=== PATIENT | female | born 1960 | race Caucasian/White ===

== ENCOUNTER 2017-04-26 16:24 | Emergency (ER) | payer SELFPAY ==
[~2017-04-26] VITALS: Ht 160 cm; Wt 101.8 kg
[2017-04-26] MEDS ORDERED: IV NORMAL SALINE 500ML 500 ML IV ONE (16:30)
--- NOTE | 2017-04-26 17:04 | PHYS DOC ---
Past History Past Medical History: Anxiety, COPD, High Cholesterol, Hypertension Past Surgical History: Alcohol Use: None Drug Use: None Adult General Chief Complaint Chief Complaint: HYPOTENSION HPI HPI 56-year-old female with a history of high blood pressure presenting to the emergency department with left-sided epigastric abdominal pain that has been present for more than 2 months. She describes the pain is mild to moderate intermittent and radiating down her left flank and without alleviating factors. No associated symptoms. No specific timing. She also feels mildly anxious. She comes in by EMS today. Report of low bp in route. she recieved 500cc prior to arrival. On arrival here, first bp was about 100 systolic. She is not in extremis. mentating normally. Review of systems is negative for chest pain shortness of breath fevers chills nausea vomiting. All other review of systems is negative unless otherwise noted in history of present illness. Pertinent physical exam findings. Lungs are clear to auscultation bilaterally. The patient's breathing comfortably on room air. Abdomen is soft and nontender. Negative McBurney's point. Negative Diaz sign no guarding or rebound tenderness present. Mild left CVA tenderness present. ED course: 86-year-old female presenting to the emergency department with left upper abdominal pain/flank pain. Heart rate within normal limits. Saturations were in the high 80s. Patient reports that this is always were her saturations are. She is on 4 L NC at home baseline. I initiated a ct abd pelvis, chest xray and blood work which had not resulted prior to sign out at 6pm. The pt was then signed out to Dr. Noriega with plans of reexamination and follow up on test Review of Systems Review of Systems SEE ABOVE. Current Medications Current Medications Current Medications Medications (Trade) Dose Ordered Sig/Eduardo Start Time Stop Time Status Last Admin Dose Admin Sodium Chloride 500 ml @ 0 mls/hr 1X ONCE 04/26/17 16:30 04/26/17 16:35 DC Allergies Allergies Allergies Coded Allergies Type Severity Reaction Last Updated Verified No Known Drug Allergies 01/07/17 No Physical Exam Physical Exam Constitutional: Well developed, well nourished, no acute distress, non-toxic appearance. HENT: Normocephalic, atraumatic, bilateral external ears normal, oropharynx moist, no oral exudates, nose normal. [] Eyes: PERRLA, EOMI, conjunctiva normal, no discharge. [] Neck: Normal range of motion, no tenderness, supple, no stridor. [] Cardiovascular:Heart rate regular rhythm, no murmur Lungs & Thorax: Bilateral breath sounds clear to auscultation [] Abdomen: Bowel sounds normal, soft, no tenderness, no masses, no pulsatile masses. [] Skin: Warm, dry, no erythema, no rash. [] Back: pos for CVA tenderness. [] Extremities: No tenderness, no cyanosis, no clubbing, ROM intact, no edema. [] Neurologic: Alert and oriented X 3, normal motor function, normal sensory function, no focal deficits noted. [] Psychologic: Affect normal, judgement normal, mood normal. [] EKG EKG [] EKG shows sinus rhythm with regular rate. ST segments congruent. Nonspecific T-wave inversions in the anterior leads.. No previous available for me for comparison at this time. Radiology/Procedures Radiology/[place] [address] IMAGING REPORT Signed PATIENT: ALEX GUILLEN ACCOUNT: [id number] : 1960 LOCATION: ER AGE: 56 SEX: F EXAM STATUS: REG ER ORD. PHYSICIAN: SEDA MONTANA MD REASON: abdominal pain and soft bp PROCEDURE: CT ABDOMEN PELVIS WO CONTRAST Examination: CT of the abdomen and pelvis without contrast HISTORY: History of abdominal pain, left-sided weakness COMPARISON: None available Technique: Axial CT images of the abdomen and pelvis was performed without contrast. Coronal and sagittal reformats performed. Exposure: One or more of the following individualized dose reduction techniques were utilized for this examination: 1. Automated exposure control 2. Adjustment of the mA and/or kV according to patient size 3. Use of iterative reconstruction technique Findings: The visualized bibasilar lungs grossly appears unremarkable. No evidence of free air identified in the abdomen. The evaluation of the solid organs is limited due to lack of IV contrast. Evaluation of bowel is limited due to lack of oral contrast. There is a diffusely decreased attenuation throughout the liver likely hepatic steatosis. The visualized spleen, adrenals sleep is unremarkable. The gallbladder is mildly distended. Visualized pancreas grossly appears unremarkable. The gallbladder is mildly distended. The stomach is mildly distended with fluid. The small bowel is nondilated. Feces and gas noted in the colon. Multiple diffuse colonic diverticula are identified throughout the colon. The bladder is mildly distended. The visualized uterus, adnexa prostate appears unremarkable. No evidence of intrarenal collecting system calculi or hydronephrosis identified. There is a cystic structure identified in the inferior aspect of the left kidney measuring 5.9 cm could be a cyst or cystic lesion. There is mild inflammatory fat stranding identified about the bilateral kidneys and extending inferiorly. Small 4 mm calcification anteroinferior to the right kidney likely soft tissue calcification as this does not appear to be along the ureter. Moderate degenerative changes identified in the lumbar spine. IMPRESSION: 1. Mild inflammatory fat stranding identified about the bilateral kidneys, nonspecific. Correlate for pyelonephritis. 2. Multiple colonic diverticula. 3. 5.9 cm cyst is identified in the left kidney likely a cyst or cystic lesion. 4. Hepatic steatosis. 5. Mildly distended gallbladder. Electronically signed by: Richard Feliciano MD (04/26/2017 5:31 PM) DICTATED AND SIGNED BY: RICHARD FELICIANO MD DATE: 04/26/17 1714 CC: JUAN MATA; SEDA MONTANA MD ~ Impressions: Hypotension Lactic acidosis Allergic reaction Hypokalemia Course & Med Decision Making Course & Med Decision Making Pertinent Labs and Imaging studies reviewed. (See chart for details) I assumed care from Dr. Montana, my interaction the patient she stated that she was feeling fine until she ate some peanuts and about 20 minutes later she started itching intensely throughout her arms she was given a Benadryl and Benadryl cream by her friend his spider these peanuts and then she started feeling generalized weak and couldn't make it out to the car so 911 was called. The ER. Here she was hypotensive and she states that she normally has a history of hypertension takes blood pressure medicines. She does complain about left sided flank discomfort that she's had for over 2 months and she's been treated for an aquatic's twice with Cipro Flagyl. She denies any shortness of breath fevers chills nausea or vomiting currently. She has received 500 mL of normal saline and her labs have been obtained and resulted. She does have a lactic acidosis of which have added on additional fluids since Solu-Medrol. I've replaced her potassium. We will admit to the hospitalist for further evaluation and treatment regarding her elevated lactic acid and hypotension. Currently the patient's in stable condition agreeable to the plan. Interim orders have been written. Dragon Disclaimer Dragon Disclaimer This chart was dictated in whole or in part using Voice Recognition software in a busy, high-work load, and often noisy Emergency Department environment. It may contain unintended and wholly unrecognized errors or omissions. Departure Departure: Impression: Primary Impression: Epigastric abdominal pain Additional Impression: Hypoxia Disposition: ADMITTED INPATIENT Condition: STABLE Referrals: JUAN MATA (PCP) Problem Qualifiers SEDA MONTANA MD Apr 26, 2017 17:04 KRISTY NORIEGA MD Apr 26, 2017 19:46
[2017-04-26 17:05] LABS: BASO # 0.1 x10^3/uL (0.0-0.2); BASO % 1 % (0-3); EOS # 0.1 x10^3/uL (0.0-0.7); EOS % 1 % (0-3); HEMATOCRIT 49.8 % (36.0-47.0); LYMPH # 2.7 x10^3/uL (1.0-4.8); LYMPH % 26 % (24-48); MEAN CORPUSCULAR HEMOGLOBIN 37 pg (25-35); MEAN CORPUSCULAR HGB CONC 34 g/dL (31-37); MEAN CORPUSCULAR VOLUME 108 fL (79-100); MONO # 0.4 x10^3/uL (0.0-1.1); MONO % 4 % (0-9); NEUT % 69 % (31-73); PLATELET COUNT 188 x10^3/uL (140-400); RED CELL DISTRIBUTION WIDTH 14.9 % (11.5-14.5); WHITE BLOOD COUNT 10.2 x10^3/uL (4.0-11.0)
[2017-04-26 17:24] LABS: CALCIUM 8.4 mg/dL (8.5-10.1); CREATININE 0.9 mg/dL (0.6-1.0); DIRECT BILIRUBIN 0.1 mg/dL (0.0-0.2); GFR 64.8; TOTAL BILIRUBIN 0.6 mg/dL (0.2-1.0); TOTAL PROTEIN 6.1 g/dL (6.4-8.2)
--- NOTE | 2017-04-26 17:33 | RAD ---
Examination: CT of the abdomen and pelvis without contrast HISTORY: History of abdominal pain, left-sided weakness COMPARISON: None available Technique: Axial CT images of the abdomen and pelvis was performed without contrast. Coronal and sagittal reformats performed. Exposure: One or more of the following individualized dose reduction techniques were utilized for this examination: 1. Automated exposure control 2. Adjustment of the mA and/or kV according to patient size 3. Use of iterative reconstruction technique Findings: The visualized bibasilar lungs grossly appears unremarkable. No evidence of free air identified in the abdomen. The evaluation of the solid organs is limited due to lack of IV contrast. Evaluation of bowel is limited due to lack of oral contrast. There is a diffusely decreased attenuation throughout the liver likely hepatic steatosis. The visualized spleen, adrenals sleep is unremarkable. The gallbladder is mildly distended. Visualized pancreas grossly appears unremarkable. The gallbladder is mildly distended. The stomach is mildly distended with fluid. The small bowel is nondilated. Feces and gas noted in the colon. Multiple diffuse colonic diverticula are identified throughout the colon. The bladder is mildly distended. The visualized uterus, adnexa prostate appears unremarkable. No evidence of intrarenal collecting system calculi or hydronephrosis identified. There is a cystic structure identified in the inferior aspect of the left kidney measuring 5.9 cm could be a cyst or cystic lesion. There is mild inflammatory fat stranding identified about the bilateral kidneys and extending inferiorly. Small 4 mm calcification anteroinferior to the right kidney likely soft tissue calcification as this does not appear to be along the ureter. Moderate degenerative changes identified in the lumbar spine. IMPRESSION: 1. Mild inflammatory fat stranding identified about the bilateral kidneys, nonspecific. Correlate for pyelonephritis. 2. Multiple colonic diverticula. 3. 5.9 cm cyst is identified in the left kidney likely a cyst or cystic lesion. 4. Hepatic steatosis. 5. Mildly distended gallbladder. Electronically signed by: Richard Feliciano MD (04/26/2017 5:31 PM)
--- NOTE | 2017-04-26 17:42 | EKG ---
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
[2017-04-26 18:49] LABS: BILIRUBIN,URINE NEG (NEG); CLARITY,URINE HAZY; COLOR,URINE AMBER; GLUCOSE,URINE NEG (NEG)
[2017-04-26 18:50] LABS: BACTERIA,URINE FEW /HPF (0-FEW); NITRITE,URINE NEG (NEG); SQUAMOUS EPITHELIAL CELL,UR MANY /LPF; UROBILINOGEN,URINE 0.2 mg/dL (0.2 mg/dL)
[2017-04-26 18:54] LABS: HYALINE CASTS, URINE FEW /HPF
[2017-04-26] MEDS ORDERED: POTASSIUM CHLORIDE 20 MEQ TABLET.ER. PO ONE ×2 (19:15→23:00)
[2017-04-26] MEDS ORDERED: IV NORMAL SALINE 1,000ML 1,000 ML IV ONE (19:15)
[2017-04-26] MEDS ORDERED: cefTRIAXone SODIUM 1 GM VIAL IV ONE (19:23)
[2017-04-26] MEDS ORDERED: IV NORMAL SALINE 50ML 50 ML ONE (19:23)
[2017-04-26] MEDS ORDERED: methylPREDNISolone SOD SUCC PF 125 MG/2 ML VIAL. IV ONE (19:45)
[2017-04-26] MEDS ORDERED: ONDANSETRON PF 4 MG/2 ML VIAL. IV PRN (20:45)
[2017-04-26] MEDS ORDERED: ACETAMINOPHEN 325 MG TABLET PO PRN (20:45)
[2017-04-26 21:51] VITALS: BP 149/70
[2017-04-26] MEDS ORDERED: LISI40TA PO (22:15)
[2017-04-26] MEDS ORDERED: CITA40TA12 PO (22:15)
[2017-04-26] MEDS ORDERED: IBUP200T43 PO (22:15)
[2017-04-26] MEDS: IV NORMAL SALINE 1,000ML 1,000 ML IV SCH (23:17)
[2017-04-26] MEDS: IBUPROFEN 600 MG TABLET. PO PRN (23:17)
[2017-04-27 06:20] VITALS: BP 134/81
[2017-04-27] MEDS: IV NORMAL SALINE 1,000ML 1,000 ML IV SCH (06:23)
[2017-04-27 06:49] LABS: BASO % 0 % (0-3); EOS % 0 % (0-3); HEMATOCRIT 48.5 % (36.0-47.0); HEMOGLOBIN 16.5 g/dL (12.0-15.5); LYMPH # 0.9 x10^3/uL (1.0-4.8); LYMPH % 7 % (24-48); MEAN CORPUSCULAR HEMOGLOBIN 37 pg (25-35); MEAN CORPUSCULAR HGB CONC 34 g/dL (31-37); MEAN CORPUSCULAR VOLUME 108 fL (79-100); MONO # 0.1 x10^3/uL (0.0-1.1); MONO % 0 % (0-9); NEUT % 93 % (31-73); PLATELET COUNT 169 x10^3/uL (140-400); RED BLOOD COUNT 4.49 x10^6/uL (3.50-5.40); RED CELL DISTRIBUTION WIDTH 15.5 % (11.5-14.5)
[2017-04-27 07:08] LABS: ALBUMIN 2.9 g/dL (3.4-5.0); ALBUMIN/GLOBULIN RATIO 0.9 (1.0-1.7); CREATININE 0.9 mg/dL (0.6-1.0); GFR 64.8; MAGNESIUM 1.5 mg/dL (1.8-2.4); TOTAL BILIRUBIN 0.4 mg/dL (0.2-1.0); TOTAL PROTEIN 6.1 g/dL (6.4-8.2)
--- NOTE | 2017-04-27 07:59 | RAD ---
Indication: Weakness and abdominal pain. Time of exam 1702 hours. FINDINGS: The heart size is normal. The lungs are clear. No pleural effusion or pneumothorax is identified. The pulmonary vascularity is normal. IMPRESSION: No acute abnormality detected.
[2017-04-27] MEDS: IBUPROFEN 600 MG TABLET. PO PRN (08:03)
[2017-04-27 08:28] LABS: % BANDS 10 % (0-9); % LYMPHS 8 % (24-48); % SEGS 82 % (35-66); PLT ESTIMATE ADEQUATE (ADEQUATE)
[2017-04-27] MEDS ORDERED: MAGNESIUM SULFATE 2GM 50 ML IV ONE (09:00)
[2017-04-27 10:02] VITALS: BP 134/81
[2017-04-27] MEDS ORDERED: LEVO750T31 PO (10:07)
[2017-04-27] MEDS ORDERED: ASPI81TA50 PO (10:07)
[2017-04-27] MEDS ORDERED: HYDR-2758 PO (10:07)
--- NOTE | 2017-04-27 13:16 | SSS ---
ADMIT DATE: 04/27/2017 DISCHARGE DIAGNOSES: 1. ALLERGIC REACTION TO PEANUTS. 2. Pyelonephritis. 3. Sepsis. 4. Chronic left upper quadrant pain. 5. Polycythemia. 6. Macrocytosis. 7. Hypomagnesemia. 8. Hepatic steatosis. 9. Chronic hypoxic respiratory failure. 10. Chronic obstructive pulmonary disease. 11. Lactic acidosis. 12. Diverticulosis. 13. Tobacco use disorder. 14. History of multiple rounds of antibiotics. 15. Left 5.9 cm renal cyst, questionable etiology. 16. Hypertension and anxiety. HOSPITAL COURSE: This is a 56-year-old female who was at her friend's getting ready for cookout. She ate some shelled peanuts, she started itching, it became severe. There was no one there at that time, when the friend returned she was given some Benadryl and put on some topical Benadryl. She became frightened and developed some anxiety and had some left-sided pain and so came to the hospital. His subsequent workup discovered several incidental findings, which will be addressed in the discharge instructions, but she did have some bandemia as well as evidence of pyelonephritis without UTI on the CT of the abdomen. She also has a large renal cyst. ALLERGIES: PEANUTS. MEDICATIONS: Lisinopril, Celexa, and albuterol via nebulizer. REVIEW OF SYSTEMS: Significant for episodes of left upper quadrant pain and treated for presumed diverticulitis. The patient does not have insurance, so it is difficult for her to go to the doctor and pay omer, which has been treated by Dr. Mcwilliams with antibiotics, denies diarrhea or constipation. HABITS: She used to smoke 1 pack per day, quit, only has occasional cigarette. Denies alcohol or drugs. REVIEW OF SYSTEMS: Negative chest pain, negative shortness of breath, no diarrhea, no constipation, positive chronic left upper quadrant pain, positive anxiety. Negative for fever, sore throat. OBJECTIVE: VITAL SIGNS: Blood pressure 134/81, pulse 87, respirations 20, temperature 97.7 and she was afebrile. Height 63 inches, weight 224.38 pounds. GENERAL: Pleasant 56-year-old in no acute distress. She did become quite tearful during the interview when talking about losing her job. HEENT: Her hearing is normal. Her eyes are clear. Nose is patent. Throat was clear. Tongue was moist. Dentition is not in the best shape. NECK: Supple without adenopathy. LUNGS: Clear to auscultation. CARDIOVASCULAR: Regular rhythm and rate. ABDOMEN: Soft, mildly protuberant. Bowel sounds are positive. She does have some left upper quadrant pain, but no masses were palpated. Diffuse palpatory pain without masses throughout the abdomen, but no posterior flank pain. EXTREMITIES: Without edema. LABORATORY DATA: Initial white count 10.2, hemoglobin 17.0, hematocrit 49.8, MCV 108. Today, she also has 10 bands. Her lactic acid initially was 6.3, is now 1.5, magnesium was 1.5 and albumin was 2.9. Urinalysis: Small amount of protein, 3-5 red cells, but many squamous epithelial cells. ASSESSMENT: The patient was treated with ceftriaxone while in the hospital and IV fluids. She never really had any kidney complaints during her hospitalization and desire to be discharged. She will need the following things addressed and I did give her type written instructions and gave her a copy of her CT of the abdomen. She was discharged on Septra double strength one twice a day for 14 days. She also was started on aspirin 81 mg a day and was given 30 hydrocodone 5/325. She needed following things addressed: 1. Polycythemia with macrocytosis that she has pulmonary hypertension, B12 was done and needs to be followed up on. 2. Left renal cyst, 5.9 cm. This will need to be evaluated as possible source of her chronic left flank pain. 3. Fatty liver. She was given a 1500-calorie low fat diet. This will need to be followed up. 4. Magnesium, will need to take magnesium supplement. 5. Encouraged to quit smoking. ZHANNA COHEN DO DR: EMERALD/selvin JOB#: [id number] / [id number] JUAN Louise
== END 2017-04-27 12:46 | disposition home or self-care (01) ==
LOC: ER 16:24 → 1 SOUTH 20:40
PROVIDERS: ADMIT Family Medicine; ATTEND Family Medicine
DX: A41.9 Sepsis, unspecified organism (principal); T78.1XXA Other adverse food reactions, not elsewhere classified, initial encounter; R10.12 Left upper quadrant pain; N12 Tubulo-interstitial nephritis, not specified as acute or chronic; D75.1 Secondary polycythemia; D75.89 Other specified diseases of blood and blood-forming organs; E83.42 Hypomagnesemia; K76.0 Fatty (change of) liver, not elsewhere classified; J96.11 Chronic respiratory failure with hypoxia; J44.9 Chronic obstructive pulmonary disease, unspecified; E87.2 Acidosis; N28.1 Cyst of kidney, acquired; I10 Essential (primary) hypertension; F41.9 Anxiety disorder, unspecified; E78.00 Pure hypercholesterolemia, unspecified; Z72.0 Tobacco use; Z79.82 Long term (current) use of aspirin
CPT/HCPCS: 36415; 71010; 74176; 80048; 80053; 80076; 81001; 83605; 83690; 83735; 83880; 84484; 85007; 85027; 87040; 87086; 93005; 96361; 96365; 96366; 96368; 96375; 99285; G0378; J0696; J2930; J3475; J7040; G0379; J7030

== ENCOUNTER 2019-02-09 23:09 | Emergency (ER) | payer MEDICARE, MEDICAID ==
[~2019-02-09] VITALS: Ht 162.6 cm; Wt 100.2 kg
[~2019-02-09 23:09] MED LIST: ASPI81TA50 PO; CITA40TA12 PO; HYDR-2155 PO; IBUP200T44 PO; LEVO750T31 PO; LISI40TA PO
[2019-02-09 23:45] LABS: BASO % 1 % (0-3); EOS # 0.1 x10^3/uL (0.0-0.7); EOS % 1 % (0-3); LYMPH # 3.6 x10^3/uL (1.0-4.8); LYMPH % 47 % (24-48); MEAN CORPUSCULAR HEMOGLOBIN 37 pg (25-35); MEAN CORPUSCULAR HGB CONC 34 g/dL (31-37); MEAN CORPUSCULAR VOLUME 110 fL (79-100); MONO # 0.4 x10^3/uL (0.0-1.1); MONO % 5 % (0-9); NEUT # 3.5 x10^3uL (1.8-7.7); NEUT % 46 % (31-73); PLATELET COUNT 177 x10^3/uL (140-400); RED BLOOD COUNT 4.55 x10^6/uL (3.50-5.40); RED CELL DISTRIBUTION WIDTH 14.1 % (11.5-14.5); WHITE BLOOD COUNT 7.5 x10^3/uL (4.0-11.0)
[2019-02-10] MEDS ORDERED: IV NORMAL SALINE 1,000ML 1,000 ML IV SCH
[2019-02-10] MEDS ORDERED: ASPIRIN 81 MG TAB.CHEW PO ONE
[2019-02-10 00:02] LABS: ALBUMIN 3.4 g/dL (3.4-5.0); ALBUMIN/GLOBULIN RATIO 0.9 (1.0-1.7); CALCIUM 9.2 mg/dL (8.5-10.1); CREATININE 0.7 mg/dL (0.6-1.0); GFR 85.9; MAGNESIUM 1.9 mg/dL (1.8-2.4); POTASSIUM 3.8 mmol/L (3.5-5.1); TOTAL BILIRUBIN 0.2 mg/dL (0.2-1.0); TOTAL PROTEIN 7.3 g/dL (6.4-8.2)
[2019-02-10] MEDS ORDERED: HEPARIN 25,000UTS/500ML PREMIX 500 ML IV PRN (00:15)
[2019-02-10] MEDS ORDERED: ANTI-COAG MONITOR BY PHARMACY. MC PRN (00:15)
--- NOTE | 2019-02-10 00:23 | PHYS DOC ---
Past History Past Medical History: Anxiety, COPD, High Cholesterol, Hypertension Past Surgical History: Alcohol Use: Occasionally Drug Use: None Adult General Chief Complaint Chief Complaint: CHEST PAIN HPI HPI Patient is a 58-year-old female who presents with complaint of left-sided chest pain that woke her up at about 10 PM tonight. She states that the pain was like a burning type pain in her chest and states that it radiated into her left shoulder and down her left arm. She describes the pain in her left arm as a deep ache. She states that she did get a little bit nauseated but had no vomiting. She denies any diaphoresis. Patient rates the pain currently to be about a 2-3 out of 10 but states that at its worst it was about a 7 out of 10. She also indicates that pain radiates into her back. Patient is not aware of anything that made symptoms better or worse. Review of Systems Review of Systems Constitutional: Denies fever or chills [] Respiratory: Denies cough or shortness of breath [] Cardiovascular: No additional information not addressed in HPI [] GI: Denies abdominal pain. Complains of nausea without vomiting. [] Musculoskeletal: Complains of left-sided mid back pain [] Integument: Denies rash or skin lesions [] All other systems were reviewed and found to be within normal limits, except as documented in this note. Current Medications Current Medications Current Medications Medications (Trade) Dose Ordered Sig/[facility] Start Time Stop Time Status Last Admin Dose Admin Aspirin (Children'S Aspirin) 324 mg 1X ONCE 02/10/19 00:00 02/10/19 00:01 DC Heparin Sodium (Porcine) (Heparin Sodium) 4,000 unit 1X ONCE 02/10/19 00:30 02/10/19 00:31 Heparin Sodium/ Dextrose 500 ml @ 20 mls/hr CONT PRN 02/10/19 00:15 Info (Anti-Coagulation Monitoring By Pharmacy) 1 each PRN DAILY PRN 02/10/19 00:15 Sodium Chloride 1,000 ml @ 1,000 mls/hr Q1H 02/10/19 00:00 02/10/19 00:59 Allergies Allergies Allergies Coded Allergies Type Severity Reaction Last Updated Verified No Known Drug Allergies 01/07/17 No Physical Exam Physical Exam Constitutional: Well developed, well nourished, no acute distress, non-toxic appearance. [] HENT: Normocephalic, atraumatic, bilateral external ears normal, oropharynx moist, no oral exudates, nose normal. [] Eyes: PERRLA, EOMI, conjunctiva normal, no discharge. [] Neck: Normal range of motion, no tenderness, supple, no stridor. [] Cardiovascular: Regular rate and rhythm[] Lungs & Thorax: Bilateral breath sounds clear to auscultation [] Abdomen: Bowel sounds normal, soft, no tenderness. [] Skin: Warm, dry, no erythema, no rash. [] Extremities: No tenderness, no cyanosis, no clubbing, ROM intact. [] Neurologic: Alert and oriented X 3, no focal deficits noted. [] Current Patient Data Vital Signs Vital Signs Date Time Temp Pulse Resp B/P (MAP) Pulse Ox O2 Delivery O2 Flow Rate FiO2 02/09/19 23:09 98.2 98 24 93 Nasal Cannula 3.0 Lab Results Laboratory Tests Test 02/09/19 23:15 White Blood Count 7.5 x10^3/uL (4.0-11.0) Red Blood Count 4.55 x10^6/uL (3.50-5.40) Hemoglobin 17.0 g/dL (12.0-15.5) H Hematocrit 50.0 % (36.0-47.0) H Mean Corpuscular Volume 110 fL (79-100) H Mean Corpuscular Hemoglobin 37 pg (25-35) H Mean Corpuscular Hemoglobin Concent 34 g/dL (31-37) Red Cell Distribution Width 14.1 % (11.5-14.5) Platelet Count 177 x10^3/uL (140-400) Neutrophils (%) (Auto) 46 % (31-73) Lymphocytes (%) (Auto) 47 % (24-48) Monocytes (%) (Auto) 5 % (0-9) Eosinophils (%) (Auto) 1 % (0-3) Basophils (%) (Auto) 1 % (0-3) Neutrophils # (Auto) 3.5 x10^3uL (1.8-7.7) Lymphocytes # (Auto) 3.6 x10^3/uL (1.0-4.8) Monocytes # (Auto) 0.4 x10^3/uL (0.0-1.1) Eosinophils # (Auto) 0.1 x10^3/uL (0.0-0.7) Basophils # (Auto) 0.0 x10^3/uL (0.0-0.2) Sodium Level 144 mmol/L (136-145) Potassium Level 3.8 mmol/L (3.5-5.1) Chloride Level 103 mmol/L (98-107) Carbon Dioxide Level 34 mmol/L (21-32) H Anion Gap 7 (6-14) Blood Urea Nitrogen 8 mg/dL (7-20) Creatinine 0.7 mg/dL (0.6-1.0) Estimated GFR (Cockcroft-Gault) 85.9 BUN/Creatinine Ratio 11 (6-20) Glucose Level 138 mg/dL (70-99) H Calcium Level 9.2 mg/dL (8.5-10.1) Magnesium Level 1.9 mg/dL (1.8-2.4) Total Bilirubin 0.2 mg/dL (0.2-1.0) Aspartate Amino Transferase (AST) 41 U/L (15-37) H Alanine Aminotransferase (ALT) 54 U/L (14-59) Alkaline Phosphatase 102 U/L (46-116) Troponin I Quantitative 0.095 ng/mL (0-0.055) H BE-Mlt-G-Type Natriuretic Peptide 110 pg/mL (0-124) Total Protein 7.3 g/dL (6.4-8.2) Albumin 3.4 g/dL (3.4-5.0) Albumin/Globulin Ratio 0.9 (1.0-1.7) L Lipase 126 U/L (73-393) Ethyl Alcohol Level 129 mg/dL (0-10) H EKG EKG EKG demonstrates sinus tachycardia with rate of 101. There are some nonspecific ST changes in the anteroseptal leads.[] Radiology/Procedures Radiology/Procedures [] Impressions: Chest x-ray demonstrates no acute process. Course & Med Decision Making Course & Med Decision Making Pertinent Labs and Imaging studies reviewed. (See chart for details) [] Dragon Disclaimer Dragon Disclaimer This electronic medical record was generated, in whole or in part, using a voice recognition dictation system. Departure Departure: Impression: Primary Impression: Non-STEMI (non-ST elevated myocardial infarction) Disposition: 02 XFER T-[facility] Admitting Physician: Fany Friend Condition: IMPROVED Referrals: JUAN MATA MD (PCP) ISAURO HENSLEY Jr., DO Feb 10, 2019 00:23
[2019-02-10] MEDS ORDERED: HEPARIN for IV BOLUS 10,000 UNIT/10 ML VIAL. IV ONE (00:30)
[2019-02-10 01:01] VITALS: BP 141/83
--- NOTE | 2019-02-10 07:36 | RAD ---
PROCEDURE: PORTABLE CHEST 1V CLINICAL INDICATION: chest pain COMPARISON: 04/26/2017 FINDINGS: No pneumothorax identified. Cardiac and mediastinal contours unremarkable. No pulmonary consolidation or acute airspace disease. No acute osseous abnormalities identified. IMPRESSION: No pulmonary consolidation or acute airspace disease. Electronically signed by: Claude Decker DO (02/10/2019 7:33 AM) [facility]
--- NOTE | 2019-02-10 12:05 | EKG ---
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
== END 2019-02-10 02:02 | disposition short-term general hospital (02) ==
LOC: ER 23:09
DX: I21.4 Non-ST elevation (NSTEMI) myocardial infarction (principal); F41.9 Anxiety disorder, unspecified; J44.9 Chronic obstructive pulmonary disease, unspecified; E78.00 Pure hypercholesterolemia, unspecified; I10 Essential (primary) hypertension
CPT/HCPCS: 36415; 71045; 80053; 83690; 83735; 83880; 84484; 85025; 93005; 96365; 96376; 99285; G0480; J1644; 96375; J7030

== ENCOUNTER 2020-04-24 14:02 | Observation (INO) | payer MEDICAID, MEDICARE ==
[~2020-04-24] VITALS: Ht 160 cm; Wt 102.7 kg
[2020-04-24 14:39] LABS: BASO % 0 % (0-3); EOS # 0.1 x10^3/uL (0.0-0.7); EOS % 1 % (0-3); HEMATOCRIT 46.9 % (36.0-47.0); HEMOGLOBIN 15.9 g/dL (12.0-15.5); LYMPH # 2.5 x10^3/uL (1.0-4.8); LYMPH % 26 % (24-48); MEAN CORPUSCULAR HEMOGLOBIN 36 pg (25-35); MEAN CORPUSCULAR HGB CONC 34 g/dL (31-37); MEAN CORPUSCULAR VOLUME 106 fL (79-100); MONO # 0.5 x10^3/uL (0.0-1.1); MONO % 6 % (0-9); NEUT # 6.5 x10^3uL (1.8-7.7); NEUT % 68 % (31-73); PLATELET COUNT 155 x10^3/uL (140-400); RED BLOOD COUNT 4.44 x10^6/uL (3.50-5.40); RED CELL DISTRIBUTION WIDTH 15.3 % (11.5-14.5); WHITE BLOOD COUNT 9.6 x10^3/uL (4.0-11.0)
[2020-04-24 14:44] LABS: CALCIUM 9.2 mg/dL (8.5-10.1); CREATININE 0.6 mg/dL (0.6-1.0); GFR 102.3; POTASSIUM 4.2 mmol/L (3.5-5.1)
[2020-04-24 14:57] LABS: ALBUMIN 3.6 g/dL (3.4-5.0); ALBUMIN/GLOBULIN RATIO 0.9 (1.0-1.7); MAGNESIUM 1.7 mg/dL (1.8-2.4); TOTAL BILIRUBIN 0.6 mg/dL (0.2-1.0); TOTAL PROTEIN 7.6 g/dL (6.4-8.2)
--- NOTE | 2020-04-24 15:02 | RAD ---
PORTABLE CHEST 1V Clinical indications: Chest pain COMPARISON: February 10, 2019. Findings: No acute lung infiltrate or pleural effusion or pulmonary edema or lung mass or pneumothorax is seen. The heart size, pulmonary vasculature, mediastinum and both annamarie are unremarkable. Impression: No acute radiographic abnormality is seen. Electronically signed by: Esvin Lake MD (04/24/2020 2:59 PM) [id number]
[2020-04-24 15:32] LABS: CLARITY,URINE CLEAR; COLOR,URINE YELLOW
[2020-04-24 15:33] LABS: BILIRUBIN,URINE NEG (NEG); GLUCOSE,URINE NEG (NEG)
[2020-04-24 15:34] LABS: NITRITE,URINE NEG (NEG); UROBILINOGEN,URINE 0.2 mg/dL (0.2 mg/dL)
[2020-04-24 15:58] LABS: BACTERIA,URINE FEW /HPF (0-FEW); SQUAMOUS EPITHELIAL CELL,UR MOD /LPF; WBC,URINE 0 /HPF (0-4)
--- NOTE | 2020-04-24 15:59 | PHYS DOC ---
Past History Past Medical History: Anxiety, COPD, High Cholesterol, Hypertension Past Surgical History: Additional Smoking Information: "quitting" Alcohol Use: Occasionally Drug Use: None General Adult EDM: Chief Complaint: CHEST PAIN HPI: HPI: Patient is a 59-year-old female who was brought here by EMS from her house due to left-sided chest pain while she was reading on her computer about 30 minutes ago. The pain radiated to her left shoulder. Patient says she had heart attack a few years ago with the same symptom so she called EMS who brought her here for evaluation. Patient was given 324 mg aspirin by EMS on route. Patient denies any cough, no fever, no nausea vomiting. Chest pain is worse with exertion. Patient denies being exposed to anybody who tested positive for COVID-19. Review of Systems: Review of Systems: Constitutional: Denies fever or chills Eyes: Denies change in visual acuity HENT: Denies nasal congestion or sore throat Respiratory: Denies cough or shortness of breath Cardiovascular: Positive for chest pain GI: Denies abdominal pain, nausea, vomiting, bloody stools or diarrhea : Denies dysuria Musculoskeletal: Denies back pain or joint pain Integument: Denies rash Neurologic: Denies headache, focal weakness or sensory changes Endocrine: Denies polyuria or polydipsia Lymphatic: Denies swollen glands Psychiatric: Denies depression or anxiety Heart Score: HEART Score for Chest Pain: HEART Score for Chest Pain Response (Comments) Value History Highly Suspicious 2 ECG Nonspecific Repolarizatio 1 Age >45 - < 65 1 Risk Factors >3 Risk Factors or Hx CAD 2 Troponin < Normal Limit 0 Total 6 Risk Factors: Risk Factors: DM, Current or recent (<one month) smoker, HTN, HLP, family history of CAD, obesity. Risk Scores: Score 0 - 3: 2.5% MACE over next 6 weeks - Discharge Home Score 4 - 6: 20.3% MACE over next 6 weeks - Admit for Clinical Observation Score 7 - 10: 72.7% MACE over next 6 weeks - Early Invasive Strategies Allergies: Allergies: Allergies Coded Allergies Type Severity Reaction Last Updated Verified No Known Drug Allergies 04/24/20 No Physical Exam: PE: Constitutional: Well developed, well nourished, no acute distress, non-toxic appearance. [] HENT: Normocephalic, atraumatic, bilateral external ears normal, oropharynx moist, no oral exudates, nose normal. [] Eyes: PERRLA, EOMI, conjunctiva normal, no discharge. [] Neck: Normal range of motion, no tenderness, supple, no stridor. [] Cardiovascular:Heart rate regular rhythm, no murmur [] Lungs & Thorax: Bilateral breath sounds clear to auscultation [] Abdomen: Bowel sounds normal, soft, no tenderness, no masses, no pulsatile masses. [] Skin: Warm, dry, no erythema, no rash. [] Back: No tenderness, no CVA tenderness. [] Extremities: No tenderness, no cyanosis, no clubbing, ROM intact, no edema. [] Neurologic: Alert and oriented X 3, normal motor function, normal sensory function, no focal deficits noted. [] Psychologic: Affect normal, judgement normal, mood normal. [] Current Patient Data: Labs: Laboratory Tests Test 04/24/20 14:02 White Blood Count 9.6 x10^3/uL (4.0-11.0) Red Blood Count 4.44 x10^6/uL (3.50-5.40) Hemoglobin 15.9 g/dL (12.0-15.5) H Hematocrit 46.9 % (36.0-47.0) Mean Corpuscular Volume 106 fL (79-100) H Mean Corpuscular Hemoglobin 36 pg (25-35) H Mean Corpuscular Hemoglobin Concent 34 g/dL (31-37) Red Cell Distribution Width 15.3 % (11.5-14.5) H Platelet Count 155 x10^3/uL (140-400) Neutrophils (%) (Auto) 68 % (31-73) Lymphocytes (%) (Auto) 26 % (24-48) Monocytes (%) (Auto) 6 % (0-9) Eosinophils (%) (Auto) 1 % (0-3) Basophils (%) (Auto) 0 % (0-3) Neutrophils # (Auto) 6.5 x10^3uL (1.8-7.7) Lymphocytes # (Auto) 2.5 x10^3/uL (1.0-4.8) Monocytes # (Auto) 0.5 x10^3/uL (0.0-1.1) Eosinophils # (Auto) 0.1 x10^3/uL (0.0-0.7) Basophils # (Auto) 0.0 x10^3/uL (0.0-0.2) Prothrombin Time 9.9 SEC (9.4-11.4) Prothrombin Time INR 1.0 (0.9-1.1) Activated Partial Thromboplast Time 25 SEC (23-33) D-Dimer (Martha) 0.45 mg/L (0.00-0.50) Sodium Level 140 mmol/L (136-145) Potassium Level 4.2 mmol/L (3.5-5.1) Chloride Level 101 mmol/L (98-107) Carbon Dioxide Level 29 mmol/L (21-32) Anion Gap 10 (6-14) Blood Urea Nitrogen 16 mg/dL (7-20) Creatinine 0.6 mg/dL (0.6-1.0) Estimated GFR (Cockcroft-Gault) 102.3 BUN/Creatinine Ratio 27 (6-20) H Glucose Level 129 mg/dL (70-99) H Calcium Level 9.2 mg/dL (8.5-10.1) Magnesium Level 1.7 mg/dL (1.8-2.4) L Total Bilirubin 0.6 mg/dL (0.2-1.0) Aspartate Amino Transferase (AST) 27 U/L (15-37) Alanine Aminotransferase (ALT) 32 U/L (14-59) Alkaline Phosphatase 93 U/L (46-116) Troponin I Quantitative < 0.017 ng/mL (0-0.055) UC-Lni-A-Type Natriuretic Peptide 174 pg/mL (0-124) H Total Protein 7.6 g/dL (6.4-8.2) Albumin 3.6 g/dL (3.4-5.0) Albumin/Globulin Ratio 0.9 (1.0-1.7) L Lipase 115 U/L (73-393) Vital Signs: Vital Signs Date Time Temp Pulse Resp B/P (MAP) Pulse Ox O2 Delivery O2 Flow Rate FiO2 04/24/20 15:27 85 19 150/85 (106) 94 Nasal Cannula 2.0 04/24/20 14:05 99.0 EKG: EKG: EKG was done at 1400, heart rate 90 bpm, normal sinus rhythm, no ST segment elevation. [] Radiology/Procedures: Radiology/Procedures: [][place] [id number] IMAGING REPORT Signed PATIENT: ALEX GUILLEN: [id number] : 1960 LOCATION: ER AGE: 59 SEX: F EXAM STATUS: REG ER ORD. PHYSICIAN: DAGO HAWK DO REASON: CHEST PAIN PROCEDURE: PORTABLE CHEST 1V PORTABLE CHEST 1V Clinical indications: Chest pain COMPARISON: February 10, 2019. Findings: No acute lung infiltrate or pleural effusion or pulmonary edema or lung mass or pneumothorax is seen. The heart size, pulmonary vasculature, mediastinum and both annamarie are unremarkable. Impression: No acute radiographic abnormality is seen. Electronically signed by: Tulio Lake MD (04/24/2020 2:59 PM) [id number] DICTATED AND SIGNED BY: TULIO LAKE MD DATE: 04/24/20 1459 CC: JUAN MATA MD; DAGO HAWK DO ~ Course & Med Decision Making: Course & Med Decision Making Pertinent Labs and Imaging studies reviewed. (See chart for details) Patient is a 59-year-old female who was brought here for chest pain, currently she is pain-free. Patient however experienced having trouble breathing when she tried to walk to the bathroom, she feels better when she rested. Dragon Disclaimer: Dragon Disclaimer: This electronic medical record was generated, in whole or in part, using a voice recognition dictation system. Departure Departure: Impression: Primary Impression: Chest pain Disposition: ADMITTED INPATIENT Admitting Physician: Juan Arrieta Condition: STABLE Referrals: SULEMAN CRUZ MD (PCP) DAGO HAWK DO Apr 24, 2020 15:59
--- NOTE | 2020-04-24 16:22 | NUR ---
NURSING NOTE CONSULT CARDIOLOGY CONSULT CALLED TO TITA AT 1620, WILL SEE PT IN AM. ELLIOTT JOYCE.
[2020-04-24] MEDS ORDERED: MORPHINE SULFATE 2 MG/ML DISP.SYRIN. IM ONE (16:30)
[2020-04-24 16:48] VITALS: BP 145/89
--- NOTE | 2020-04-24 17:14 | HP ---
ADMIT DATE: 04/24/2020 ADMISSION HISTORY AND PHYSICAL ATTENDING PHYSICIAN: Juan Mclaughlin MD CHIEF COMPLAINT: Left-sided chest pain under her left breast. HISTORY OF PRESENT ILLNESS: The patient is a 59-year-old female admitted through the ED with new onset of chest pain at rest. It is in the left breast, constant, dull in nature. No recent exposure. No recent trauma or travel. No fevers or chills. She is very anxious. She has a strong history of heart disease 2 years ago. She had a cardiac catheterization with 1 stent placed for coronary artery disease. Unfortunately, she continues to smoke half a pack of cigarettes a day. She also has hyperlipidemia and hypertension risk factors. In the ED, cardiac enzymes initially showed no myocardial necrosis. EKG is nondiagnostic without any acute changes. She is admitted then for serial enzymes and evaluation by Cardiology services. She has been followed by the problems apiculturist. PAST MEDICAL HISTORY: Significant for COPD, generalized anxiety, high cholesterol, hypertension. PAST SURGICAL HISTORY: . SOCIAL HISTORY: She lives with her son. She is a smoker. No alcohol use. CURRENT MEDICATIONS: Reviewed. She was taking Lexapro, aspirin daily. She was also taking lisinopril 40 mg daily and Levaquin 750 p.o. daily. ALLERGIES: She has no listed drug allergies. FAMILY HISTORY: Noncontributory. PHYSICAL EXAMINATION: GENERAL: When I saw her, this is a pleasant female. She is a little bit on the anxious side. INITIAL VITAL SIGNS: In the ED showed that she was afebrile. Blood pressure was 140/70, pulse is regular. She was afebrile. HEENT: Head is without trauma. Pupils are reactive. Sclerae nonicteric. Oropharynx is clear. NECK: Supple, no bruits identified. LUNGS: Otherwise clear. CARDIOVASCULAR: Showed regular heart tones. No gallops, no murmurs. Peripheral pulses are palpable and full. ABDOMEN: Soft, scaphoid, nontender, no organomegaly. Bowel sounds were hypoactive. EXTREMITIES: Showed no cyanosis or edema. NEUROLOGIC: Focally intact. Speech is fluent. SKIN: Warm and dry. PERTINENT LABORATORY DATA AND X-RAY STUDIES: Her initial 12-lead electrocardiogram showed no evidence of acute changes. The 12-lead EKG showed no evidence of myocardial necrosis. The first set of cardiac enzymes were unremarkable. Hemoglobin 15.9 g/dL with a white count of 9600. MCV is elevated at 106. Sodium 140, creatinine is 0.6 mg percent. Transaminases within normal range. ASSESSMENT: 1. A 59-year-old female with atypical localized chest pain. I do not think it is cardiac in nature. 2. Known history of 1-vessel coronary artery disease. 3. Hypertension. 4. Hyperlipidemia. 5. Generalized anxiety. PLAN: 1. Observation status overnight. 2. Serial cardiac enzymes. 3. Cardiology service will see her in the morning. 4. Continue home meds. JUAN MCLAUGHLIN MD DR: MELY/selvin JOB#: [id number] / [id number] SULEMAN Munoz MD
--- NOTE | 2020-04-24 17:49 | NUR ---
NURSING NOTE ADMIT PT ADMIT TO ROOM 115 FROM ED VIA EMS ACCOMPANIED BY EMS PERSONNEL WITH DX OF CHEST PAIN. PT STATES HER CHEST PAIN STARTED AT 1100 THIS AM ACROSS THE LEFT SIDE OF HER CHEST AND INTO HER LEFT SHOULDER, PT STATES AFTER IT DID NOT GO AWAY, SHE NOTIFIED HER SON, AND WAS BROUGHT TO ED. PT IS NOT SURE OF HER HOME MEDICATIONS, WILL CONTACT [facility] AND OBTAIN MED LIST. DR MCLAUGHLIN NOTIFIED OF ADMISSION. NO COMPLICATIONS. ELLIOTT JOYCE.
[2020-04-24] MEDS ORDERED: FLUT1BLS3 PO (17:57)
[2020-04-24] MEDS ORDERED: ASPI325T8 PO (17:57)
[2020-04-24] MEDS ORDERED: CLOP75TA PO (17:57)
[2020-04-24] MEDS ORDERED: ATOR40TA59 PO (17:57)
[2020-04-24] MEDS ORDERED: LISI-334 PO (17:57)
[2020-04-24] MEDS ORDERED: METO25TA4 PO (17:57)
[2020-04-24] MEDS ORDERED: CITA20TA6 PO (17:57)
[2020-04-24] MEDS ORDERED: ALPR1TAB6 PO (17:57)
[2020-04-24] MEDS ORDERED: NON FORMULARY ITEM (Fluticasone/Umeclidin/Vilanter (Trelegy Ellipta 100-62.5-25) 1 PUFF) PO PRN (18:00)
--- NOTE | 2020-04-24 18:02 | NUR ---
NURSING NOTE ORDER ORDER OBTAINED FROM DR MCLAUGHLIN FOR PRILOSEC 40 DAILY. WE DO NOT CARRY THAT MEDICATION, NONFORMULARY. PHARMACY SUBSTITUTED FOR PROTONIX 40 DAILY. ELLIOTT JOYCE.
[2020-04-24] MEDS ORDERED: ALPRAZolam 0.5 MG TABLET PO PRN (18:15)
[2020-04-24] MEDS ORDERED: ALBUTEROL SULFATE 2.5 MG/3 ML NEBU. NEB PRN (18:30)
[2020-04-24 19:18] VITALS: BP 120/80
[2020-04-24] MEDS ORDERED: BUDESONIDE 0.5 MG/2 ML NEBU NEB PRN (20:00)
[2020-04-24] MEDS: LISINOPRIL 20 MG TABLET PO SCH (20:51)
[2020-04-24] MEDS ORDERED: ATORVASTATIN CALCIUM 20 MG TABLET PO SCH (21:00)
[2020-04-24 23:07] VITALS: BP 130/74
--- NOTE | 2020-04-25 05:00 | NUR ---
Pt resting in bed and no c/o CP. Remains on 2L o2 per NC. Uneventful night for pt.
[2020-04-25 05:28] VITALS: BP 121/76
[2020-04-25] MEDS ORDERED: PANTOPRAZOLE 40 MG TABLET. PO SCH (07:30)
[2020-04-25] MEDS: LISINOPRIL 20 MG TABLET PO SCH (08:33)
--- NOTE | 2020-04-25 08:49 | EKG ---
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
[2020-04-25] MEDS ORDERED: CLOPIDOGREL BISULFATE 75 MG TABLET PO SCH (09:00)
[2020-04-25] MEDS ORDERED: CITALOPRAM 20 MG TABLET. PO SCH ×2 (09:00)
[2020-04-25] MEDS ORDERED: METOPROLOL TART IMMED RELEASE 25 MG TABLET PO SCH (09:00)
[2020-04-25] MEDS ORDERED: ASPIRIN 325 MG TABLET PO SCH (09:00)
--- NOTE | 2020-04-25 09:07 | PDOC2 ---
CARDIAC CONSULT DATE OF CONSULT Date Of Consult DATE: 04/25/20 TIME: 09:06 REASON FOR CONSULT Reason for Consult Chest pain REFERRING PHYSICIAN Referring Physician Dr. Kumar SOURCE Source: Chart review, Patient HPI History of Present Illness This is a 59 yo female, with a h/o CAD s/p BMS to RCA 02/09, who presented secondary to chest pain. Patient reports pain began around 11am yesterday morning as she was sitting at the table drinking coffee. Located in her left chest. Describes as pressure and stabbing. Radiated up to her left arm. No associated dizziness, diaphoresis, palpitations, SOA, or nausea/vomiting. Received ASA by EMS. Pain resolved with morphine and has not returned. Unfortunately, patient had PCI in January of last year, but has not followup in in our office as she has canceled or been a now show to appointments. Discussed i mportance of routine followup. PAST MEDICAL HISTORY Past Medical History Cardiovascular: HTN, CAD, Hpyerlipidemia Pulmonary: COPD CENTRAL NERVOUS SYSTEM: Other (No pertinent history) GI: No pertinent hx Heme/Onc: No pertinent hx Hepatobiliary: No pertinent hx Psych: Anxiety, addictions Musculoskeletal: Osteoarthritis Rheumatologic: No pertinent hx Infectious disease: No pertinent hx ENT: No pertinent hx Renal/: No pertinent hx Endocrine: No pertinent hx Dermatology: No pertinent hx PAST SURGICAL HISTORY Past Surgical History: Other (PCI/stent ) FAMILY HISTORY Family History: Hypertension SOCIAL HISTORY Smoke: <1 pack per day ALCOHOL: other (1 pint of Whisky weekly ) Drugs: None Lives: with Family CURRENT MEDICATIONS Current Medications Current Medications Morphine Sulfate (Morphine 2mg Syringe) 2 mg 1X ONCE IM Last administered on 04/24/20at 16:22; Start 04/24/20 at 16:30; Stop 04/24/20 at 16:32; Status DC Aspirin (Felipe Aspirin) 325 mg DAILY PO Last administered on 04/25/20at 08:33; Start 04/25/20 at 09:00 Citalopram Hydrobromide (CeleXA) 400 mg DAILY PO ; Start 04/25/20 at 09:00; Stop 04/25/20 at 08:43; Status DC Clopidogrel Bisulfate (Plavix) 75 mg DAILY PO Last administered on 04/25/20at 08:33; Start 04/25/20 at 09:00 Lisinopril (Prinivil) 20 mg BID PO Last administered on 04/25/20at 08:33; Start 04/24/20 at 21:00 Metoprolol Tartrate (Lopressor) 25 mg DAILY PO Last administered on 04/25/20at 08:32; Start 04/25/20 at 09:00 Alprazolam (Xanax) 1 mg PRN BID PRN PO ANXIETY / AGITATION; Start 04/24/20 at 18:15 Atorvastatin Calcium (Lipitor) 40 mg QHS PO Last administered on 04/24/20at 20:50; Start 04/24/20 at 21:00 Non-Formulary Medication (Fluticasone/ Umeclidin/ Vilanter (Trelegy Ellipta 100-62.5-25)) 1 puff PRN BID PRN PO SEE COMMENTS; Start 04/24/20 at 18:00; Status UNV Pantoprazole Sodium (Protonix) 40 mg DAILYAC PO Last administered on 04/25/20at 08:32; Start 04/25/20 at 07:30 Albuterol Sulfate (Ventolin) 2.5 mg PRN BID PRN NEB SHORTNESS OF BREATH; Start 04/24/20 at 18:30 Budesonide (Pulmicort) 0.5 mg PRN BID PRN NEB SHORTNESS OF BREATH; Start 04/24/20 at 20:00 Citalopram Hydrobromide (CeleXA) 40 mg DAILY PO ; Start 04/25/20 at 09:00 Active Scripts Active Reported Lisinopril 20 Mg Tablet 1 Tab PO BID Citalopram Hbr (Citalopram Hydrobromide) 20 Mg Tablet 20 Tab PO DAILY Aspirin 325 Mg Tablet 325 Tab PO DAILY Trelegy Ellipta 100-62.5-25 (Fluticasone/Umeclidin/Vilanter) 1 Each Blst.w.dev 1 Puff PO PRN BID PRN Atorvastatin Calcium 40 Mg Tablet 40 Tab PO HS Clopidogrel (Clopidogrel Bisulfate) 75 Mg Tablet 75 Tab PO DAILY Metoprolol Tartrate 25 Mg Tablet 25 Tab PO DAILY Alprazolam 1 Mg Tablet 1 Tab PO PRN BID PRN ALLERGIES Allergies: Coded Allergies: No Known Drug Allergies (Unverified , 04/24/20) ROS Review of Systems 14 point ROS conducted with pertinent positives noted above in HPI PHYSICAL EXAM General: Alert, Oriented X3, Cooperative, No acute distress HEENT: Atraumatic, Mucous membr. moist/pink Lungs: Clear to auscultation Heart: Regular rate, Normal S1, Normal S2, No murmurs Abdomen: Soft, No tenderness Extremities: No edema, Normal pulses Skin: No breakdown Neuro: Normal speech, Sensation intact Psych/Mental Status: Mental status NL, Mood NL MUSCULOSKELETAL: Osteoarthritic changes both hands VITALS Vital Signs Vital Signs Date Time Temp Pulse Resp B/P (MAP) Pulse Ox O2 Delivery O2 Flow Rate FiO2 04/25/20 08:33 61 121/76 04/25/20 05:28 98.2 18 95 Nasal Cannula 2.0 LABS LABS Laboratory Tests Test 04/24/20 14:02 04/24/20 15:15 04/24/20 18:51 04/24/20 22:07 White Blood Count 9.6 x10^3/uL (4.0-11.0) Red Blood Count 4.44 x10^6/uL (3.50-5.40) Hemoglobin 15.9 g/dL (12.0-15.5) Hematocrit 46.9 % (36.0-47.0) Mean Corpuscular Volume 106 fL (79-100) Mean Corpuscular Hemoglobin 36 pg (25-35) Mean Corpuscular Hemoglobin Concent 34 g/dL (31-37) Red Cell Distribution Width 15.3 % (11.5-14.5) Platelet Count 155 x10^3/uL (140-400) Neutrophils (%) (Auto) 68 % (31-73) Lymphocytes (%) (Auto) 26 % (24-48) Monocytes (%) (Auto) 6 % (0-9) Eosinophils (%) (Auto) 1 % (0-3) Basophils (%) (Auto) 0 % (0-3) Neutrophils # (Auto) 6.5 x10^3uL (1.8-7.7) Lymphocytes # (Auto) 2.5 x10^3/uL (1.0-4.8) Monocytes # (Auto) 0.5 x10^3/uL (0.0-1.1) Eosinophils # (Auto) 0.1 x10^3/uL (0.0-0.7) Basophils # (Auto) 0.0 x10^3/uL (0.0-0.2) Prothrombin Time 9.9 SEC (9.4-11.4) Prothromb Time International Ratio 1.0 (0.9-1.1) Activated Partial Thromboplast Time 25 SEC (23-33) D-Dimer (Martha) 0.45 mg/L (0.00-0.50) Sodium Level 140 mmol/L (136-145) Potassium Level 4.2 mmol/L (3.5-5.1) Chloride Level 101 mmol/L (98-107) Carbon Dioxide Level 29 mmol/L (21-32) Anion Gap 10 (6-14) Blood Urea Nitrogen 16 mg/dL (7-20) Creatinine 0.6 mg/dL (0.6-1.0) Estimated GFR (Cockcroft-Gault) 102.3 BUN/Creatinine Ratio 27 (6-20) Glucose Level 129 mg/dL (70-99) Calcium Level 9.2 mg/dL (8.5-10.1) Magnesium Level 1.7 mg/dL (1.8-2.4) Total Bilirubin 0.6 mg/dL (0.2-1.0) Aspartate Amino Transf (AST/SGOT) 27 U/L (15-37) Alanine Aminotransferase (ALT/SGPT) 32 U/L (14-59) Alkaline Phosphatase 93 U/L (46-116) Troponin I Quantitative < 0.017 ng/mL (0-0.055) < 0.017 ng/mL (0-0.055) < 0.017 ng/mL (0-0.055) KB-Sqz-D-Type Natriuretic Peptide 174 pg/mL (0-124) Total Protein 7.6 g/dL (6.4-8.2) Albumin 3.6 g/dL (3.4-5.0) Albumin/Globulin Ratio 0.9 (1.0-1.7) Lipase 115 U/L (73-393) Urine Collection Type Unknown Urine Color Yellow Urine Clarity Clear Urine pH 7.0 Urine Specific [place] 1.020 Urine Protein 100 mg/dl (NEG-TRACE) Urine Glucose (UA) Neg mg/dL (NEG) Urine Ketones (Stick) Neg mg/dL (NEG) Urine Blood Small (NEG) Urine Nitrite Neg (NEG) Urine Bilirubin Neg (NEG) Urine Urobilinogen Dipstick 0.2 mg/dL (0.2 mg/dL) Urine Leukocyte Esterase Neg (NEG) Urine RBC 3-5 /HPF (0-2) Urine WBC 0 /HPF (0-4) Urine Squamous Epithelial Cells Mod /LPF Urine Bacteria Few /HPF (0-FEW) ECHOCARDIOGRAM Echocardiogram <Conclusion> The left ventricular systolic function is normal and the ejection fraction is within normal range. The Ejection Fraction is 50-55%. There is mild hypokinesis in the apical septal wall. DATE: 02/10/19 1146 STRESS TEST Stress Test Findings. Hemodynamics. Left ventricle 118 /6, 18. Aortic root 114/66. IFR measurement of the left circumflex was normal at 0.99. Coronaries. Left main. The left main had no lesions. Left anterior descending. The LAD was a moderate size vessel with normal distribution. It was calcified. It had diffuse proximal to mid lesions in the 30-40% range. Left circumflex. The left circumflex is a moderate size vessel. It had an angulated mid lesion of approximately 50%. IFR measurement was normal at 0.99. Right coronary artery. The right coronary had a greater than 95% mid lesion present. Left ventricle. The left ventricle showed normal LV systolic function. Injection was mitigated by a episode of nonsustained ventricular tachycardia. <Conclusion> Severe single-vessel coronary artery disease in the RCA. Moderate disease in the left anterior descending and the left circumflex vessels. Greater than 95% mid RCA lesion decreased to 0% with a bare metal stent. Normal IFR measurement of the left circumflex lesion. Normal left ventricular systolic function. DATE: 02/10/19 1729 ASSESSMENT/PLAN Assessment/Plan 1. Chest pain, atypical. AMI ruled out. 2. CAD s/p PIC/BMS to the RCA 02/09. Moderate disease in the LAD and LCx1 as noted above. LVEF 50-55% per echo at that time. Reports compliance with medications including DAPT 3. Accelerated hypertension; now controlled 4. Hyperlipidemia; statin 5. Hypomagnesemia. 6. COPD with continued tobaccoism 7. ETOH misuse Recommendations Replace Mg Resume secondary prevention measures. Risk stratification modification Discussed importance and encouraged smoking cessation and curbing use of ETOH. Outpatient ischemic evaluation Follow up in our office with Dr. Bennett as scheduled Supportive care Okay to discharge from a CV standpoint TITA TRIPLETT APRN Apr 25, 2020 09:07
[2020-04-25] MEDS ORDERED: MAGNESIUM SULFATE 2GM 50 ML IV ONE (09:45)
[2020-04-25 10:28] VITALS: BP 169/76
--- NOTE | 2020-04-25 11:48 | DS ---
DATE OF DISCHARGE: 04/25/2020 ATTENDING PHYSICIAN: Dr. Mclaughlin. FINAL DISCHARGE DIAGNOSES: 1. Atypical chest pain, resolved. 2. Known coronary artery disease with bare metal stent of the right coronary artery. 3. Hypertension. 4. Chronic obstructive pulmonary disease. 5. Generalized anxiety. 6. Hyperlipidemia. 7. Continuing tobacco abuse. 8. Chronic alcoholism. HISTORY OF PRESENT ILLNESS: This 59-year-old female was admitted through the ED with left sided chest pain under her breast. It came at rest, similar to previous episode of coronary ischemia, resulting in a bare metal stent placed in 01/2019. She was admitted for further treatment and evaluation. PHYSICAL EXAMINATION: Please see the dictated note. PERTINENT LABORATORY AND X-RAY STUDIES: Her hemoglobin was 15.9 g/dL with a white count of 9600; telltale signs, MCV was 106 suggesting heavy alcohol use. Electrolytes are within normal range. Creatinine 0.6 mg percent, 3 sets of cardiac enzymes are negative for coronary ischemia. The EKG was nondiagnostic and the chest x-ray was entirely clear. COURSE IN THE HOSPITAL: The patient was admitted. I started her on some Prilosec. Symptoms improved, 3 sets of enzymes were negative. Cardiology consultation was obtained and please refer to their recommendations. She was better the next day. I think it was reasonable to go home. Strong recommendation to quit smoking and drinking altogether. Whether or not she will quit smoking and drinking remains to be seen. There are no changes on her home medication. She is discharged home then with continuation of her alprazolam, aspirin, Lipitor, Celexa, Paxil, lisinopril and metoprolol, doses unchanged. She was discharged in a stable condition with explicit instructions and followup care. JUAN MCLAUGHLIN MD DR: MELY/selvin JOB#: [id number] / [id number]
--- NOTE | 2020-04-25 12:43 | NUR ---
PATIENT IS DISCHARGED HOME, DISCHARGE INSTRUCTION AND FOLLOW UP APPOINTMENTS REVIEWED , PT VERBALIZED UNDERSTANDING. PATIENT LEFT ROOM 115 VIA W/C ACCOMPANIED BY THIS RN. PT IS TAKEN HOME BY SON VIA PERSONAL VEHICLE.
== END 2020-04-25 12:45 | disposition home or self-care (01) ==
LOC: ER 14:02 → 1 SOUTH 15:55
PROVIDERS: ADMIT Hospitalist; ATTEND Hospitalist
DX: R07.89 Other chest pain (principal); I25.10 Atherosclerotic heart disease of native coronary artery without angina pectoris; I10 Essential (primary) hypertension; E78.5 Hyperlipidemia, unspecified; F41.1 Generalized anxiety disorder; F17.210 Nicotine dependence, cigarettes, uncomplicated; J44.9 Chronic obstructive pulmonary disease, unspecified; E78.00 Pure hypercholesterolemia, unspecified; F10.20 Alcohol dependence, uncomplicated; I25.2 Old myocardial infarction; E83.42 Hypomagnesemia; Z98.61 Coronary angioplasty status; Z79.899 Other long term (current) drug therapy; Z79.82 Long term (current) use of aspirin
CPT/HCPCS: 36415; 71045; 80053; 81001; 83690; 83735; 83880; 84484; 85025; 85379; 85610; 85730; 93005; 94640; 96365; 96366; 96372; 99285; 99406; G0378; J2270; J3475; G0379

== ENCOUNTER → 2021-06-13 | Outpatient (CLI) | payer MEDICARE, MEDICAID ==
[~2021-06-13] MED LIST changes: +ALPR1TAB6 PO; +ASPI325T8 PO; +ATOR40TA59 PO; +CITA20TA6 PO; +CLOP75TA PO; +FLUT1BLS3 PO; +LISI20TA18 PO; -LISI40TA PO; +LISI40TA6 PO; +METO25TA4 PO
--- NOTE | 2021-06-13 18:31 | RAD ---
EXAM: XR HIP (WITH OR WITHOUT PELVIS) 1 VIEW, XR LUMBAR SPINE 2-3V 06/13/2021 11:03 AM CLINICAL INDICATION: Back pain and bilateral hip pain COMPARISON: None FINDINGS: Lumbar spine: 3 views were obtained. There are 5 nonrib-bearing lumbar vertebral bodies. No acute fra cture. Alignment is normal. There are mild degenerative endplate changes with small anterior osteophy penelope throughout the lumbar spine without significant disc space narrowing. There is moderate lower lum bar facet arthrosis. Bilateral hip with pelvis: 5 views were obtained. No acute fracture. Alignment is normal. Joint space s are maintained. Femoral heads are normal in morphology. Pubic symphysis and sacroiliac joints are n ormal. There are dystrophic calcifications in the right hamstrings tendon origin. IMPRESSION: 1. Mild degenerative disc disease of the lumbar spine and moderate lower lumbar facet arthrosis. 2. No acute osseous abnormality or significant degenerative joint disease of the hips. Electronically signed by: Manisha Galindo MD (06/13/2021 6:29 PM) [id number]
== END ==
LOC: RAD 10:59
PROVIDERS: ATTEND Family Medicine
DX: M51.36 Other intervertebral disc degeneration, lumbar region (principal); M25.78 Osteophyte, vertebrae; M25.551 Pain in right hip; M25.552 Pain in left hip; Z68.41 Body mass index [BMI] 40.0-44.9, adult
CPT/HCPCS: 72100; 73521